=== PATIENT | male | born 1955 | race Caucasian/White ===

== ENCOUNTER 2017-09-07 10:30 | Emergency (ER) | payer BC ==
[2017-09-07] MEDS ORDERED: Acetaminophen/HYDROcodone 325-5 MG Tab PO ONE (11:59)
--- NOTE | 2017-09-10 08:25 | EDM.PDOC ---
Scribed by Eli Fallon 09/10/17 0825 for Juan Cox MD ED HPI GENERAL MEDICAL PROBLEM - General Chief Complaint: Upper Extremity Injury/Pain Stated Complaint: FELL ON ICE, RT SHOULDER Time Seen by Provider: 09/07/17 10:55 Source of Information: Reports: Patient, RN, RN Notes Reviewed History Limitations: Reports: No Limitations - History of Present Illness INITIAL COMMENTS - FREE TEXT/NARRATIVE: Patient presents to ER today complaining of right shoulder pain. He states he fell on the ice , 09/05/17. He has persistent right posterior and lateral rib pain. Patient admits that he hit his head but denies loss of consciousness or neck pain. Denies shortness of breath or cough. Onset Date: 09/05/17 Duration: Getting Worse Location: Reports: Upper Extremity, Right, Other (ribs) Quality: Reports: Ache Severity: Severe Improves with: Reports: None Worsens with: Reports: None Associated Symptoms: Reports: No Other Symptoms Right Shoulder Pain Score (Numeric/FACES): 4 - Related Data Allergies Allergy/AdvReac Type Severity Reaction Status Date / Time No Known Allergies Allergy Verified 09/07/17 10:43 Home Meds: Home Meds . [No Known Home Meds] 09/07/17 [History] Past Medical History - Past Surgical History Musculoskeletal Surgical History: Reports: ORIF (right wrist.) Social & Family History - Family History Family Medical History: Noncontributory Review of Systems - Review of Systems Review Of Systems: ROS reveals no pertinent complaints other than HPI. ED EXAM, GENERAL - Physical Exam Exam: See Below Exam Limited By: No Limitations General Appearance: Alert, WD/WN, No Apparent Distress Head: Atraumatic, Normocephalic Neck: Normal Inspection, Supple, Non-Tender, Full Range of Motion Respiratory/Chest: No Respiratory Distress, Lungs Clear, No Accessory Muscle Use , Decreased Breath Sounds, Splinting, Other (right posterior and lateral ches wall/rib tenderness without visible swelling or deformity. ). No: Rales, Rhonchi, Wheezing Cardiovascular: Normal Peripheral Pulses, Regular Rate, Rhythm, No Edema, No Gallop, No JVD, No Murmur, No Rub GI/Abdominal: Normal Bowel Sounds, Soft, Non-Tender, No Organomegaly, No Distention, No Abnormal Bruit, No Mass (Male) Exam: Deferred Rectal (Males) Exam: Deferred Back Exam: Normal Inspection, Full Range of Motion, NT Extremities: Normal Inspection, Normal Range of Motion, Non-Tender, Normal Capillary Refill, No Pedal Edema Neurological: Alert, Oriented, CN II-XII Intact, Normal Cognition, Normal Gait, Normal Reflexes, No Motor/Sensory Deficits Psychiatric: Normal Affect, Normal Mood Skin Exam: Other (resolving faint contusion at right posterior chest wall. ) Course - Vital Signs Last Recorded V/S: Last Vital Signs Temp 36.4 C 09/07/17 10:37 Pulse 62 09/07/17 10:37 Resp 16 09/07/17 10:37 BP 130/76 09/07/17 10:37 Pulse Ox 100 09/07/17 10:37 - Orders/Labs/Meds Meds: Medications Discontinued Medications Generic Name Dose Route Start Last Admin Trade Name Freq PRN Reason Stop Dose Admin Hydrocodone Bitart/Acetaminophen 1 tab 09/07/17 11:59 09/07/17 12:07 [place] 325-5 Mg PO 09/07/17 12:00 1 tab ONETIME ONE Administration - Radiology Interpretation Free Text/Narrative:: X-ray right ribs: Minimally displaced right rib fracture #6. See rad report. Departure - Departure Time of Disposition: 12:01 Disposition: Home, Self-Care 01 Condition: Good Clinical Impression: Fracture of rib of right side Qualifiers: Encounter type: initial encounter Rib fracture type: single rib Fracture type: closed Qualified Code(s): S22.31XA - Fracture of one rib, right side, initial encounter for closed fracture - Discharge Information Instructions: Rib Fracture, [id number] Forms: ED Department Discharge Additional Instructions: RX: Hydrocodone APAP 5mg/325mg. Deep breathe several times a day to avoid pneumonia. Follow up in clinic or ER if you develop a cough or fever at any time. I have read and agree with the documentation that has been completed regarding this visit. By signing this record, I attest that the documentation was completed in my physical presence and is an accurate record of the encounter.
== END 2017-09-07 12:13 | disposition home or self-care (01) ==
LOC: DL.ED 10:30
DX: S22.31XA Fracture of one rib, right side, initial encounter for closed fracture (principal); W00.0XXA Fall on same level due to ice and snow, initial encounter
CPT/HCPCS: 71101; 99283; A9270